=== PATIENT | female | born 2000 | race Caucasian/White ===

== ENCOUNTER 2020-01-13 09:47 | Inpatient (IN) | payer BC ==
[2020-01-13 10:17] LABS: Specific Gravity <= 1.005 (1.005-1.030)
[2020-01-13 10:45] VITALS: BMI 23.0
[2020-01-13 10:54] LABS: Absolute Lymphocytes (CBC) 1.2 K/uL (0.7-4.9); Basophils % 0.3 % (0-1.3); Hematocrit 37.9 % (36.0-45.0); Lymphocytes % 12.7 % (15.3-44.8); RBC Red Blood Cell Count 4.63 M/uL (3.86-4.86)
[2020-01-13 10:59] LABS: Urine Appearance CLEAR; Urine Bilirubin NEGATIVE (NEG); Urine Blood NEGATIVE (NEG); Urine Color YELLOW; Urine Glucose NEGATIVE (NEG); Urine Protein NEGATIVE (NEG); Urine Specific Gravity <=1.005 (1.005-1.030); Urine Urobilinogen 0.2 mg/dL (0.2-1.0); Urine pH 6.5 (5.0-7.0)
[2020-01-13] MEDS ORDERED: POLYETHYL GLY 3350 17 GM/DOSE PO PRN (11:00)
[2020-01-13] MEDS ORDERED: DIPHENHYDRAMINE 25 MG TAB/CAP PO PRN (11:00)
[2020-01-13] MEDS ORDERED: LOPERAMIDE HCL 2 MG CAPSULE PO PRN (11:00)
[2020-01-13 11:01] LABS: Protime INR 1.06
[2020-01-13 11:02] LABS: Urine Microscopic Reflex NO UMIC
--- OUTSIDE RECORDS SUMMARY | 2020-01-13 11:18 | XMS REPORT | Continuity of Care Document ---
:2000 Author Organization [facility] t Address [facility] access hospital [address] [place] [address] Care Team Providers Name Role Phone Magaña Attending Clinician Unavailable Problems This patient has no known problems. Allergies, Adverse Reactions, Alerts This patient has no known allergies or adverse reactions. Medications This patient has no known medications. Procedures This patient has no known procedures. Results Test Description Test Time Test Comments Results Result Comments Source Hematology 2018-03-30 17:46:00 Test Item Value Reference Range Interpretation Comme nts Hematology (test code = WBCT) 3.1 thou/uL 4.8-10.8 L Hematology (test code = RBCT) 5.34 mill/uL 4.00-5.20 H Hematology (test code = HGBT) 11.9 g/dL 12.0-16.0 L Hematology (test code = HCTT) 38.5 % 36.0-47.0 N Hematology (test code = MCV) 72.1 fL 78.0-98.0 L Hematology (test code = MCH) 22.3 pg 25.0-35.0 L Hematology (test code = MCHC) 30.9 g/dL 32.0-36.0 L Hematology (test code = RDW) 14.6 % 11.5-14.5 H Hematology (test code = PLTT) 268 thou/uL 130-400 N Hematology (test code = MPV) 6.9 fL 7.4-10.4 L Hematology (test code = %NEUT) 53.5 % 31.0-61.0 N Hematology (test code = %LYMPH) 34.2 % 28.0-48.0 N Hematology (test code = %MONO) 11.3 % 0.0-4.0 H Hematology (test code = %EOS) 0.2 % 0.0-10.0 N Hematology (test code = %BASO) 0.8 % 0.0-1.0 N Hematology (test code = NEUT#) 1.6 thou/uL 1.40-6.50 N Hematology (test code = LYMPH#) 1.1 thou/uL 1.20-3.40 L Hematology (test code = MONO#) 0.4 thou/uL 0.11-0.59 N Hematology (test code = EOS#) 0.0 thou/uL 0.0-0.7 N Hematology (test code = BASO#) 0.0 thou/uL 0.0-0.2 N Hematology (test code = AZ) SLIGHT = 6-15 cells (100X) 0-5/hpf Hematology (test code = HYPO) SLIGHT = 6-15 cells (100X) 0-5/hpf Hematology (test code = PCOMMENT) Appears Adequate [id number] 17:06:00 Test Item Value Reference Range Interpretation Comments Chemistry (test 142 mmol/L 136-145 N code = NA-T) Chemistry (test 4.0 mmol/L 3.5-5.1 N code = K-T) Chemistry (test 109 mmol/L 98-107 H code = CL) Chemistry (test 23 mmol/L 22-29 N code = CO2) Chemistry (test 14 mmol/L 10-20 N code = ANGP) Chemistry (test 9 mg/dL 8.4-21.0 N code = BUN) Chemistry (test 0.74 mg/dL 0.6-1.1 N code = CREATT) Chemistry (test Greater than 90 Referenc e Range for code = EGFRMDRD) Estimated G FR: Gre ater than 90 mL/min/ 1.73 m2NOTE:The MDRD equation has no t been validated for use with theeld erly (over 70 years of age), women, patients with serious comorbi d condition or pe rsons with extremes o fbody size, muscle ma ss, or nutritional status. Chemistry (test 94 mg/dL 70-105 N code = GLU-T) Chemistry (test 9.4 mg/dL 7.8-10.44 N code = CA)
[2020-01-13 11:32] LABS: ALT/SGPT 14 U/L (12-78); AST/SGOT 11 U/L (15-37); Alkaline Phosphatase 60 U/L (45-117); BUN Blood Urea Nitrogen 6 mg/dL (7-18); Bicarbonate 24 mmol/L (21-32); Bilirubin Direct < 0.1 mg/dL (0-0.2); Bilirubin Total 0.4 mg/dL (0.2-1.0); Glucose Level 87 mg/dL (74-106); Magnesium 1.9 mg/dL (1.8-2.4); Phosphorus 2.5 mg/dL (2.5-4.9); Potassium 3.5 mmol/L (3.5-5.1); Protein, Total 8.2 g/dL (6.4-8.2); Sodium Level 138 mmol/L (136-145)
[2020-01-13] MEDS: NACHLORIDE 0.45% 1,000 ML IV SCH (11:40)
[2020-01-13] MEDS: VANCOMYCIN 1.25 GM in NA CHLORIDE 0.9% 250 ML IVPB SCH ×2 (11:41→22:02)
[2020-01-13] MEDS: HYDROMORPHONE HCL 1 MG/ML INJ IV PRN ×2 (11:43→21:16)
--- NOTE | 2020-01-13 12:02 | RAD REPORT ---
EXAM DESCRIPTION: RAD - Chest Pa And Lat (2 Views) - 01/13/2020 11:55 am CLINICAL HISTORY: Facial Abscess, preop examination COMPARISON: None TECHNIQUE: Frontal and lateral views of the chest were obtained. FINDINGS: The lungs are normal volume. No dense consolidation or mass. No cavitation. Lung parenchym al opacification over lower lung singleton probably affects of soft tissue. Minimal anterior lung base i nfiltrates are possible if there are matching clinical findings. No history is given to indicate acut e respiratory symptoms. No failure or volume overload. Heart size is normal and central vasculature is within normal limits. No pleural effusion or pneumothorax seen. No acute bony finding noted. N o aortic abnormality. IMPRESSION: Baseline study showing no dense mass or consolidation. Increased lung parenchymal opacification at each base is probably baseline. Patchy pneumonia is unlik keith given the absence of any apparent symptoms.
[2020-01-13] MEDS ORDERED: Ringers Lactate 1,000 ML IV ONE (13:05)
[2020-01-13] MEDS ORDERED: FENTANYL CITR 100 MCG/2 ML ONE (13:52)
[2020-01-13] MEDS ORDERED: LIDOCAINE 2% MPF 5 ML VIAL ONE (13:52)
[2020-01-13] MEDS ORDERED: propofoL 200 MG/20 ML VIAL IV ONE ×2 (13:52→14:18)
[2020-01-13] MEDS ORDERED: MIDAZOLAM HCL 2 MG/2 ML INJ ONE (13:52)
[2020-01-13] MEDS ORDERED: KETOROLAC 30 MG/ML INJ ONE (14:29)
[2020-01-13] MEDS ORDERED: ONDANSETRON 4 MG/2 ML VIAL ONE (14:29)
--- NOTE | 2020-01-13 14:32 | P.OP ---
Preoperative diagnosis: Right Face Abscess Postoperative diagnosis: same Primary procedure: I and D and Debridement Right Face Abscess Anesthesia: MAC Estimated blood loss: min Specimen: Pus C&S Findings: as above Complications: None Transferred to: Recovery Room Condition: Good
[2020-01-13] MEDS ORDERED: CODEINE 30MG/APAP 300MG TAB PO PRN (14:46)
[2020-01-13] MEDS: MORPHINE 4 MG/ML SYR ONE ×2 (14:52→14:57)
[2020-01-13] MEDS ORDERED: CHLORHEXIDINE GLUCO 4% 120 ML TOP SCH (15:00)
[2020-01-13] MEDS: ONDANSETRON 4 MG (ODT) TAB PO PRN (16:09)
--- NOTE | 2020-01-13 17:27 | P.SSS ---
Patient History Date of Service: 01/13/20 Reason for admission: FACIAL ABSCESS. History of Present Illness: CELINA STARTED TO HAVE SUDDEN PAINFUL SWELLING ON R SIDE CHEEK. I SAW HER URGENTLY FIRST TIME. AT THAT TIME THERE WAS ABOUT A CM SIZE INDURATION WITHOUT FLUCTUATION. EVEN ON BACTRIM AFTER 3 DOSES OVERNIGHT SHE SWOLL UP MORE. I ADMITTED HER WITH INTENTION TO DO I AND D AND START IV VANCOMYCIN. DR. ISLAS REMOVED ABOUT 5 ML OF PUS AND HE THOUGHT THE BACTERIA ENTERED THE SKIN THROUGH A SPIDER BITE. I WILL DISCHARGE HER IN AM ON ORAL ABX. Allergies No Known Allergies Allergy (Verified 01/13/20 10:02) Home Medications: Sulfamethoxazole/Trimethoprim [Sulfamethoxazole-Tmp Ds Tablet] 1 tab PO BID 01/13/20 - Past Medical/Surgical History Has patient received pneumonia vaccine in the past: No Diabetic: No -: Anemia - Social History Smoking Status: Never smoker Alcohol use: No CD- Drugs: No Caffeine use: No Place of Residence: Home Review of Systems 10-point ROS is otherwise unremarkable Physical Examination - Vital Signs Temperature: 97.9 F Blood Pressure: 108/54 Pulse: 92 Respirations: 17 Pulse Ox (%): 100 - Physical Exam General: Mild distress, Moderate distress HEENT: Atraumatic, PERRLA, Mucous membr. moist/pink, Other (FACIAL ABSCESS NOW UP TO ABOUT 4 CM IN DIAMETER OF INDURATION AND FLUCTUATION IN THE CENTER. ), EOMI, Sclerae nonicteric Neck: Supple, 2+ carotid pulse no bruit, No LAD, Without JVD or thyroid abnormality Respiratory: Clear to auscultation bilaterally, Normal air movement Cardiovascular: Regular rate/rhythm, Normal S1 S2 Gastrointestinal: Normal bowel sounds, No tenderness Musculoskeletal: No tenderness Integumentary: No rashes Neurological: Normal gait, Normal speech, Normal strength at 5/5 x4 extr, Normal tone, Normal affect Lymphatics: No axilla or inguinal lymphadenopathy - Studies Laboratory Data (last 24 hrs) 01/13/20 10:31: Sodium 138, Potassium 3.5, BUN 6 L, Creatinine 1.00, Glucose 87, Phosphorus 2.5, Magnesium 1.9, Total Bilirubin 0.4, AST 11 L, ALT 14, Alkaline Phosphatase 60 01/13/20 10:31: PT 12.5, INR 1.06, APTT 29.9 01/13/20 10:31: WBC 9.8, Hgb 12.7, Hct 37.9, Plt Count 423 H Microbiology Data (last 24 hrs): 01/13/20 10:48 Nasopharnyx Coronavirus COVID-19 PCR - Final - Diagnosis (Problem(s)) (1) Infection of skin due to methicillin resistant Staphylococcus aureus (MRSA) Current Visit: Yes Status: Acute Plan: I SUSPECT THIS WILL BE MRSA INDUCED ABSCESS. IV VANCOMYCIN STARTED. SHE WILL GO HOME ON BACTRIM DS SHE ALREADY HAS AND WOUND CARE. STABLE. SEEN AT LUNCH TIME TODAY BEFORE SURGERY. - Disposition Disposition: ROUTINE DISCHARGE
--- NOTE | 2020-01-13 18:56 | PREOPCON ---
Date of Consultation: 01/13/2020 Reason For Consultation: Infection on right side of face. History Of Present Illness: Patient is a 19-year-old female, who comes in with approximately 5-day h istory of increasing redness, swelling, pain on the right side of the face between the eye and the ea r. She saw Dr. Gaxiola earlier in the week, started on Bactrim; however, the redness became worse. Sh e was admitted for IV antibiotics and I was consulted for incision and drainage. She is awake and al ert, complaining of pain and swelling. Review of Systems: Otherwise unremarkable. Past Medical History: Negative. Past Surgical History: Ankle surgery. Allergies: NONE. Social History: She denies smoking, drinks socially. Family History: Noncontributory. Physical Examination: Vital Signs: Stable. Afebrile. General: Awake, alert. Head and Neck: Cranial nerves 2 through 12 are grossly within normal limits. No neck masses. No JV D. Throat clear. Neck is supple. On the right side of the face between the ear and the eye, there is approximately a 3 cm area of induration, redness with central fluctuance and minimal drainage with pus present, it is dark plus, probably MRSA. There is some secondary swelling of the periorbital re gion on the right side. Laboratory Data: Reviewed. Assessment: A 19-year-old female with right face abscess and cellulitis. Plan: Admit, n.p.o., IV fluid, IV antibiotic, to the OR for incision and drainage and debridement of right face abscess. Patient understands the risks, benefits, and alternatives and agrees to procedures. /MODL Voice ID: [id number] Report ID: [id number]
--- NOTE | 2020-01-13 19:27 | OP ---
Date of Procedure: 01/13/2020 Surgeon: Naun Peterson MD Preoperative Diagnosis: Right face abscess and cellulitis. Postoperative Diagnosis: Right face abscess and cellulitis. Procedure Performed: Incision and drainage and debridement of right face abscess. Estimated Blood Loss: Minimal. Specimens: Pus. Findings: As above. Anesthesia: MAC. Complications: None. Disposition: Patient tolerated the procedure in stab le condition, taken to the recovery room in goo d general condition. Procedure In Detail: Patient was brought to the OR and placed in supine position. MAC anesthesia be gun. Patient was prepped and draped in usual sterile fashion. Marcaine 0.5% was infiltrated locally. A 15-blade was used to cut out the necrotic center of this abscess, it is approximately 6 mm in belkys meter. There was pus under there under pressure, which was evacuated, loculations were broken up. N ecrotic tissue debrided. Wound irrigated. Bleeding controlled with cautery and then wet-to-dry norm al saline dressing change applied. The patient tolerated the procedure in stable condition, taken to Recovery in good general condition. /MODL Voice ID: [id number] Report ID: [id number]
[2020-01-13] MEDS: MUPIROCIN 2% OINT 22GM TUBE TOP SCH (21:15)
[2020-01-13] MEDS: ACETAMINOPHEN 325 MG TABLET PO PRN (23:57)
[2020-01-14] MEDS: HYDROMORPHONE HCL 1 MG/ML INJ IV PRN ×5 (05:13→22:19)
[2020-01-14 05:24] LABS: Absolute Lymphocytes (CBC) 1.7 K/uL (0.7-4.9); Basophils % 0.4 % (0-1.3); Hematocrit 35.4 % (36.0-45.0); Lymphocytes % 17.6 % (15.3-44.8); MPV 7.9 fL (7.6-11.3); RBC Red Blood Cell Count 4.28 M/uL (3.86-4.86)
[2020-01-14 05:35] LABS: BUN Blood Urea Nitrogen 4 mg/dL (7-18); Bicarbonate 23 mmol/L (21-32); Glucose Level 82 mg/dL (74-106); Magnesium 2.1 mg/dL (1.8-2.4); Sodium Level 139 mmol/L (136-145)
[2020-01-14] MEDS: ONDANSETRON 4 MG (ODT) TAB PO PRN ×2 (07:13→17:35)
[2020-01-14] MEDS ORDERED: PROMETHAZINE INJ 25 MG/ML AMP IV PRN (08:05)
[2020-01-14] MEDS: MUPIROCIN 2% OINT 22GM TUBE TOP SCH ×2 (08:34→19:40)
[2020-01-14] MEDS: VANCOMYCIN 1.25 GM in NA CHLORIDE 0.9% 250 ML IVPB SCH ×2 (10:55→23:20)
[2020-01-14] MEDS: ONDANSETRON 4 MG/2 ML VIAL IV PRN ×2 (14:19→22:21)
[2020-01-14] MEDS: ACETAMINOPHEN 325 MG TABLET PO PRN ×2 (16:16→23:20)
--- NOTE | 2020-01-14 19:28 | PN ---
Subjective: Patient is still in significant amount of pain on right side face, has still IV Dilaudid for pain control. Physical Examination: Vital Signs: Blood pressure is 97/46, pulse 84. HEENT/NECK: No JVD. No carotid bruits. Chest: Clear. Heart: Regular. Abdomen: No guarding, no rigidity Skin: On face examination, patient's right-sided facial edema continues, which is about the same as before. Assessment/planning: Right facial abscess, possibly status post a spider bite. She has necrosis and an infection through the penetration of the skin in the region. Dr. Peterson did debridement , removed about 5-6 mL of fluid or pus from it. Culture has been sent. Continue vancomycin IV, keny jones I suspect will be the right antibiotic for her intravenously as it seemed like a methicillin resist ant Staphylococcus aureus infection from the beginning. JUDDD/MODL Voice ID: [id number] Report ID: [id number]
[2020-01-14] MEDS: NACHLORIDE 0.45% 1,000 ML IV SCH (19:48)
[2020-01-14 20:54] VITALS: O2SAT 100
[2020-01-15] MEDS: ACETAMINOPHEN 325 MG TABLET PO PRN (06:05)
[2020-01-15] MEDS: NACHLORIDE 0.45% 1,000 ML IV SCH (06:05)
[2020-01-15] MEDS: HYDROMORPHONE HCL 1 MG/ML INJ IV PRN ×2 (06:19→08:56)
[2020-01-15] MEDS: ONDANSETRON 4 MG/2 ML VIAL IV PRN (06:20)
[2020-01-15 06:38] LABS: Absolute Lymphocytes (CBC) 1.7 K/uL (0.7-4.9); Basophils % 0.7 % (0-1.3); Lymphocytes % 24.3 % (15.3-44.8); MPV 8.2 fL (7.6-11.3)
[2020-01-15 06:48] LABS: BUN Blood Urea Nitrogen 4 mg/dL (7-18); Bicarbonate 25 mmol/L (21-32); Glucose Level 95 mg/dL (74-106); Potassium 3.6 mmol/L (3.5-5.1); Sodium Level 139 mmol/L (136-145)
[2020-01-15] MEDS ORDERED: NA CHLORIDE 0.9% IVPB SCH ×2 (08:00→11:00)
[2020-01-15] MEDS ORDERED: VANCOMYCIN IVPB SCH ×2 (08:00→11:00)
[2020-01-15] MEDS: MUPIROCIN 2% OINT 22GM TUBE TOP SCH (08:36)
[2020-01-15] MEDS ORDERED: POTASSIUM CL SA 10 MEQ TAB PO ONE (09:00)
[2020-01-15] MEDS ORDERED: TRAMADOL HCL 50 MG TAB PO PRN (09:55)
--- NOTE | 2020-01-15 09:55 | PN ---
Date of Progress Note: 01/15/2020 Subjective: The patient is awake and alert, had some pain. No fever or chills. Her cultures grew o ut MRSA sensitive to Bactrim and doxycycline. Objective: Examination of the wound reveals it to be cleaned. There is minimal purulence coming fro m approximately 12 o'clock position. There is some erythema and induration but no fluctuance up ther e and probably some residual pus. Remainder of the periwound is good and a periorbital edema is impr oving as well. Assessment: Status post incision and drainage and debridement of right face abscess. Recommendations: Continue antibiotics, MRSA cocktail. Patient is cleared from Surgery for discharge within the next 24 hours. Follow with my office in a week from Friday. Dressing instructions given to mother in detail. /MODL Voice ID: [id number] Report ID: [id number]
[2020-01-15] MEDS ORDERED: PROMETHAZINE 25 MG TABLET PO PRN (09:56)
[2020-01-15] MEDS ORDERED: VANCOMYCIN 1.75 GM in NA CHLORIDE 0.9% 500 ML IVPB SCH (11:00)
[2020-01-15 12:15] VITALS: BP 99/49; TEMP 97.1
--- NOTE | 2020-01-15 22:37 | P.PN ---
Subjective Date of Service: 01/14/20 Chief Complaint: FACIAL ABSCESS. CELINA HAD TO STAY ONE MORE DAY SHE WAS IN MODERATE AMOUNT OF PAIN AND NEEDED IV MEDS. SHE WILL ALSO GET IV VANCOMYCIN FOR ONE MORE DAY. Physical Examination - Vital Signs Temperature: 97.1 F Blood Pressure: 99/49 Pulse: 65 Respirations: 16 Pulse Ox (%): 100 - Physical Exam General: Alert, In no apparent distress, Moderate distress HEENT: Atraumatic, PERRLA, Other (FACIAL EDEMA FROM INFCTION SHOULD RESOLVE SOON. ), EOMI Neck: Supple, JVD not distended Respiratory: Clear to auscultation bilaterally, Normal air movement Cardiovascular: Regular rate/rhythm, Normal S1 S2 Gastrointestinal: Normal bowel sounds, No tenderness Musculoskeletal: No tenderness Integumentary: No rashes Neurological: Normal speech, Normal tone, Normal affect Lymphatics: No axilla or inguinal lymphadenopathy - Studies Laboratory Data (last 24 hrs) 01/15/20 05:54: Sodium 139, Potassium 3.6, BUN 4 L, Creatinine 0.76, Glucose 95, Magnesium 2.0 01/15/20 05:54: WBC 6.9 D, Hgb 11.2 L, Hct 34.0 L, Plt Count 384 Microbiology Data (last 24 hrs): 01/13/20 14:25 Wound - Right Cheek Gram Stain - Final 01/13/20 14:25 Wound - Right Cheek Culture & Sensitivity - Final Meth Resistant Staph Aureus Medications List Reviewed: Yes Assessment And Plan - Current Problems (Diagnosis) (1) Infection of skin due to methicillin resistant Staphylococcus aureus (MRSA) Status: Acute Plan: I SUSPECT THIS WILL BE MRSA INDUCED ABSCESS. IV VANCOMYCIN STARTED. SHE WILL GO HOME ON BACTRIM DS SHE ALREADY HAS AND WOUND CARE. STABLE. SEEN AT LUNCH TIME TODAY BEFORE SURGERY. STABLE ABOVE.
--- NOTE | 2020-01-15 22:39 | P.DS ---
Admission Date: 01/15/20 Discharge Date: 01/15/20 Disposition: DC HOME/HOME HEALTH CARE Reason for Admission: FACIAL ABSCESS. - Problems (1) Infection of skin due to methicillin resistant Staphylococcus aureus (MRSA) Status: Acute Brief History of Present Illness: CELINA STARTED TO HAVE SUDDEN PAINFUL SWELLING ON R SIDE CHEEK. I SAW HER URGENTLY FIRST TIME. AT THAT TIME THERE WAS ABOUT A CM SIZE INDURATION WITHOUT FLUCTUATION. EVEN ON BACTRIM AFTER 3 DOSES OVERNIGHT SHE SWOLL UP MORE. I ADMITTED HER WITH INTENTION TO DO I AND D AND START IV VANCOMYCIN. DR. PETERSON REMOVED ABOUT 5 ML OF PUS AND HE THOUGHT THE BACTERIA ENTERED THE SKIN THROUGH A SPIDER BITE. I WILL DISCHARGE HER IN AM ON ORAL ABX. Hospital Course: CELINA IS DOING GREAT. SHE STILL VOMITS AFTER PAIN MEDS. SHE IS DOING GOOD IN [place] WITHOUT NEEDING ANY MEDS FOR PAIN, SHE IS DICHARGED IN STABLE CONDITION. SHE HAS BACTIRM DS SHE WILL CONTINUE AT HOME. Vital Signs/Physical Exam: Temp Pulse Resp BP Pulse Ox 97.1 F 65 16 99/49 L 100 01/15/20 22:37 01/15/20 22:37 01/15/20 22:37 01/15/20 22:37 01/15/20 22:37 Laboratory Data at Discharge: WBC 6.9 K/uL (4.3-10.9) D 01/15/20 05:54 Hgb 11.2 g/dL (12.0-15.0) L 01/15/20 05:54 Hct 34.0 % (36.0-45.0) L 01/15/20 05:54 Plt Count 384 K/uL (152-406) 01/15/20 05:54 PT 12.5 SECONDS (9.5-12.5) 01/13/20 10:31 INR 1.06 01/13/20 10:31 APTT 29.9 SECONDS (24.3-36.9) 01/13/20 10:31 Sodium 139 mmol/L (136-145) 01/15/20 05:54 Potassium 3.6 mmol/L (3.5-5.1) 01/15/20 05:54 BUN 4 mg/dL (7-18) L 01/15/20 05:54 Creatinine 0.76 mg/dL (0.55-1.3) 01/15/20 05:54 Glucose 95 mg/dL (74-106) 01/15/20 05:54 Phosphorus 2.5 mg/dL (2.5-4.9) 01/13/20 10:31 Magnesium 2.0 mg/dL (1.8-2.4) 01/15/20 05:54 Total Bilirubin 0.4 mg/dL (0.2-1.0) 01/13/20 10:31 AST 11 U/L (15-37) L 01/13/20 10:31 ALT 14 U/L (12-78) 01/13/20 10:31 Alkaline Phosphatase 60 U/L (45-117) 01/13/20 10:31 Home Medications: Sulfamethoxazole/Trimethoprim [Sulfamethoxazole-Tmp Ds Tablet] 1 tab PO BID 01/13/20 Promethazine Tab [Phenergan] 25 mg PO Q6HP PRN #30 tab 01/15/20 Tramadol HCl [Ultram] 50 mg PO Q6HP PRN #30 tablet 01/15/20 New Medications: Promethazine Tab [Phenergan] 25 mg PO Q6HP PRN #30 tab PRN Reason: Nausea / Vomiting Tramadol HCl [Ultram] 50 mg PO Q6HP PRN #30 tablet PRN Reason: Pain Scale 5-7 (Moderate) Followup: Brandon Gaxiola MD [Primary Care Provider] - 1-2 Weeks Naun Peterson MD [ACTIVE - CAN ADMIT] - 1 Week
[2020-01-18 10:24] LABS: Vitamin D 1,25-Dihydroxy Total 73 pg/mL (18-72); Vitamin D,1,25-OH2, D2 <8 pg/mL
== END 2020-01-15 14:04 | disposition home or self-care (01) | DRG 571 ==
LOC: INTOOBSV 09:47 → 4TH 09:47 → OBSVTOIN 01-15 09:57
PROVIDERS: ADMIT Internal Medicine; ATTEND Internal Medicine
PROC: 0JB10ZZ Excision of Face Subcutaneous Tissue and Fascia, Open Approach (ICD-10-PCS; principal; 2020-01-13 13:30)
DX: L03.211 Cellulitis of face (principal); L02.01 Cutaneous abscess of face; B95.62 Methicillin resistant Staphylococcus aureus infection as the cause of diseases classified elsewhere; T63.301A Toxic effect of unspecified spider venom, accidental (unintentional), initial encounter
CPT/HCPCS: 36415; 71046; 80048; 80076; 80202; 81003; 81025; 82607; 82652; 83735; 84100; 84443; 84703; 85025; 85610; 85730; 87040; 87070; 87077; 87186; 87205; 93005; G0378; J1170; J2250; J2405; J2550; J2704; J3010; J7030; J7040; J7120; U0002

== ENCOUNTER 2021-01-29 14:59 | Emergency (ER) | payer BC ==
--- OUTSIDE RECORDS SUMMARY | 2021-01-29 15:04 | XMS REPORT | Continuity of Care Document ---
:2000 Author Organization [facility] t Address [address] [place] [id number] Care Team Providers Name Role Phone Magaña [...] thou/uL 0.0-0.2 N Hematology (test code = VA) SLIGHT = 6-15 cells (100X) 0-5/hpf Hematology (test code = HYPO) SLIGHT = 6-15 cells (100X) 0-5/hpf Hematology (test code = PCOMMENT) Appears Adequate [id number] 17:06:00 Test Item Value Reference Range Interpretation [...]
[2021-01-29 17:34] LABS: Urine Blood Negative (Negative); Urine Glucose Negative (Negative); Urine Protein Negative (Negative); Urine Specific Gravity >=1.030 (1.005-1.030)
[2021-01-29] MEDS ORDERED: NA CHLORIDE 0.9% 1,000 ML ONE (17:50)
[2021-01-29] MEDS ORDERED: ONDANSETRON 4 MG/2 ML VIAL ONE (17:50)
[2021-01-29] MEDS ORDERED: KETOROLAC 30 MG/ML INJ ONE (17:50)
[2021-01-29 17:57] LABS: Absolute Lymphocytes (CBC) 2.2 K/uL (0.7-4.9); Basophils % 0.4 % (0-1.3); Hematocrit 38.1 % (36.0-45.0); Lymphocytes % 30.9 % (15.3-44.8); MPV 7.9 fL (7.6-11.3); RBC Red Blood Cell Count 4.46 M/uL (3.86-4.86)
[2021-01-29 18:04] LABS: Urine Specific Gravity/Preg >1.030 (1.005-1.030)
[2021-01-29 18:26] LABS: ALT/SGPT 21 U/L (12-78); AST/SGOT 9 U/L (15-37); Alkaline Phosphatase 61 U/L (45-117); BUN Blood Urea Nitrogen 6 mg/dL (7-18); Bicarbonate 27 mmol/L (21-32); Bilirubin Direct < 0.1 mg/dL (0-0.2); Bilirubin Total 0.5 mg/dL (0.2-1.0); Glucose Level 104 mg/dL (74-106); Lipase 112 U/L (73-393); Potassium 3.7 mmol/L (3.5-5.1); Protein, Total 7.8 g/dL (6.4-8.2); Sodium Level 140 mmol/L (136-145)
--- NOTE | 2021-01-29 19:55 | RAD REPORT ---
EXAM DESCRIPTION: CT - Stone Protocol - 01/29/2021 7:27 pm CLINICAL HISTORY: ABD PAIN COMPARISON: No comparisons TECHNIQUE: Axial [address] imaging of the abdomen and pelvis was performed without IV contrast. No IV contrast was given because of allergy, abnormal renal function, patient refusal or physician re quest. No oral contrast administered. All CT scans are performed using dose optimization technique as appropriate and may include automated exposure control or mA/KV adjustment according to patient size. FINDINGS: No suspicious findings in the lung bases. The liver, spleen and pancreas show no suspicious findings on non-contrast imaging. Gallbladder and b iliary tree are also without suspicious finding. No hydronephrosis or suspicious renal mass. No significant adrenal finding. Isodense renal masses an d pyelonephritis cannot be excluded in the absence of IV contrast. Urinary bladder is fully contracte d. No bladder calculi identifiable. Uterus and ovaries show no suspicious findings. No dilated bowel loops or bowel wall thickening. Moderate stool volume throughout the colon. No suspi cion for appendicitis. No free air, free fluid or inflammatory stranding. No hernia, mass or bulky ly mphadenopathy. No suspicious bony findings. IMPRESSION: Non-contrast enhanced CT abdomen and pelvis imaging show no acute or emergent finding. Full assessment is limited is the absence of IV contrast.
[2021-01-29] MEDS ORDERED: ONDANSETRON 4 MG (ODT) TAB ONE ×2 (20:01→20:03)
--- NOTE | 2021-01-29 20:03 | ER ---
Nurse's Notes [facility] Name: Nandini Ibarra Age: 20 yrs Sex: Female : 2000 Arrival Date: 01/29/2021 Time: 15:06 Bed 23 Private MD: Diagnosis: Lower abdominal pain, unspecified; Nausea and vomiting;Diarrhea, unspecified Presentation: 01/29 15:31 Chief complaint: Patient states: "I am having stomach problems for the past couple of jd3 days and I went to urgent care and they said they needed to run test to rule out things like an ultrasound to rule out appendicitis or gal stones.". Coronavirus screen: At this time, the client does not indicate any symptoms associated with coronavirus-19. Ebola Screen: Patient negative for fever greater than or equal to 101.5 degrees Fahrenheit, and additional compatible Ebola Virus Disease symptoms. Initial Sepsis Screen: Does the patient meet any 2 criteria? No. Patient's initial sepsis screen is negative. Does the patient have a suspected source of infection? No. Patient's initial sepsis screen is negative. Risk Assessment: Do you want to hurt yourself or someone else? Patient reports no desire to harm self or others. Onset of symptoms was January 26, 2021. 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 - Social history:: Smoking status: Patient denies any tobacco usage or history of. Screenin:17 Abuse screen: Denies threats or abuse. Nutritional screening: No deficits noted. vg1 Tuberculosis screening: No symptoms or risk factors identified. Fall Risk No fall in past 12 months (0 pts). No secondary diagnosis (0 pts). IV access (20 points). Ambulatory Aid- None/Bed Rest/Nurse Assist (0 pts). Gait- Normal/Bed Rest/Wheelchair (0 pts) Mental Status- Oriented to own ability (0 pts). Total Colon Fall Scale indicates No Risk (0-24 pts). Assessment: 17:30 General: Appears in no apparent distress. comfortable, Behavior is calm, cooperative. vg1 Pain: Complains of pain in abdomen Pain currently is 6 out of 10 on a pain scale. Pain began 2-3 days ago. Neuro: Level of Consciousness is awake, alert, obeys commands, Oriented to person, place, time, situation. Cardiovascular: Patient's skin is warm and dry. Respiratory: Airway is patent Respiratory effort is even, unlabored. GI: Bowel sounds present X 4 quads. Abdomen is tender to palpation in right lower quadrant Reports diarrhea, nausea, vomiting. : No signs and/or symptoms were reported regarding the genitourinary system. EENT: No signs and/or symptoms were reported regarding the EENT system. Derm: Skin is intact, is healthy with good turgor. Musculoskeletal: Circulation, motion, and sensation intact. 19:44 Reassessment: Patient appears in no apparent distress at this time. No changes from vg1 previously documented assessment. Patient and/or family updated on plan of care and expected duration. Pain level reassessed. Patient is alert, oriented x 3, equal unlabored respirations, skin warm/dry/pink. Vital Signs: 15:34 BP 127 / 78; Pulse 58; Resp 16 S; Temp 98.0(TE); Pulse Ox 100% on R/A; Weight 63.5 kg jd3 (R); Height 5 ft. 7 in. (170.18 cm) (R); Pain 6/10; 19:44 BP 115 / 73; Pulse 60; Resp 16; Pulse Ox 100% on R/A; vg1 20:21 BP 120 / 74; Pulse 66; Resp 14; Pulse Ox 100% ; vg1 15:34 Body Mass Index 21.93 (63.50 kg, 170.18 cm) jd3 ED Course: 15:06 Patient arrived in ED. mr 15:33 Triage completed. jd3 15:35 Arm band placed on. jd3 16:38 Louise [facility]C [facility] kb 16:38 Brandt Flood MD is Attending Physician. kb 17:25 Nereida Maldonado, DHARA is Primary Nurse. vg1 17:43 Initial lab(s) drawn, by me, sent to lab. Inserted saline lock: 22 gauge in left vg1 antecubital area, using aseptic technique. Blood collected. 17:52 IV d/c due to infiltration. vg1 18:00 Inserted saline lock: 22 gauge in right antecubital area, using aseptic technique. vg1 18:13 IV d/c due to infiltration. vg1 18:18 Patient has correct armband on for positive identification. Bed in low position. Call vg1 light in reach. Side rails up X 1. Adult w/ patient. 18:55 Radiology exam delayed due to IV insertion attempt and/or patient not having vm2 appropriate IV at this time. 19:26 CT Stone Protocol In Process Unspecified. EDMS 20:21 No provider procedures requiring assistance completed. vg1 Administered Medications: 19:39 Discontinued: NS 0.9% 1000 ml IV at 1000 ml once vg1 18:00 Drug: NS 0.9% 1000 ml Route: IV; Rate: 1000 ml; Site: right antecubital; vg1 20:24 Follow up: IV Status: IV infiltrated vg1 18:01 Drug: Zofran (Ondansetron) 4 mg Route: IVP; Site: right antecubital; vg1 19:39 Follow up: Response: No adverse reaction vg1 18:03 Drug: TORadol - (ketorolac) 15 mg Route: IVP; Site: right antecubital; vg1 19:39 Follow up: Response: Pain is unchanged, physician notified vg1 19:44 Drug: Zofran (Ondansetron) 4 mg Route: PO; vg1 20:23 Follow up: Response: No adverse reaction; Nausea is decreased vg1 Outcome: 20:03 Discharge ordered by . trino 20:21 Discharged to home ambulatory, with family. vg1 20:21 Condition: stable 20:21 Discharge instructions given to patient, Instructed on discharge instructions, follow up and referral plans. medication usage, Demonstrated understanding of instructions, follow-up care, medications, Prescriptions given X 2. 20:24 Patient left the ED. vg1 Signatures: Dispatcher [employer] EDMS Louise Juan FNP-C FNP-Ckb Rivera, Mary Nereida Waters Woody Monzon RN RN Nereida Vargas RN RN vg1 Corrections: (The following items were deleted from the chart) 18:14 17:52 due to infiltration vg1 vg1
--- NOTE | 2021-01-29 20:03 | EDPHYS ---
Physician Documentation [facility] Name: Nandini Ibarra Age: 20 yrs Sex: Female : 2000 Arrival Date: 01/29/2021 Time: 15:06 Bed 23 Private MD: ED Physician Brandt Flood HPI: 01/29 19:33 This 20 yrs old Female presents to ER via Ambulatory with complaints of kb Abdominal Pain. 19:33 The patient presents with abdominal pain right lower quadrant. Onset: The kb symptoms/episode began/occurred 4 day(s) ago. The symptoms do not radiate. Associated signs and symptoms: Pertinent positives: nausea, vomiting, and diarrhea, Pertinent negatives: fever. The symptoms are described as intermittent. Modifying factors: The symptoms are alleviated by nothing, the symptoms are aggravated by nothing. Severity of pain: At its worst the pain was moderate in the emergency department the pain is unchanged. The patient has not experienced similar symptoms in the past. The patient has not recently seen a physician. Pt reports intermittent RLQ pain with nausea, vomiting and diarrhea. 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 No pain at this time.. 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 - Social history:: Smoking status: Patient denies any tobacco usage or history of. ROS: 19:38 Constitutional: Negative for fever, chills, and weight loss. kb 19:38 Abdomen/GI: Positive for abdominal pain, nausea, vomiting, and diarrhea, Negative for constipation. 19:38 All other systems are negative. Exam: 19:38 Constitutional: This is a well developed, well nourished patient who is awake, alert, kb and in no acute distress. Head/Face: Normocephalic, atraumatic. ENT: Moist Mucous membranes Cardiovascular: Regular rate and rhythm with a normal S1 and S2. No gallops, murmurs, or rubs. No pulse deficits. Respiratory: Respirations even and unlabored. No increased work of breathing, no retractions or nasal flaring. Back: No spinal tenderness. No costovertebral tenderness. Full range of motion. Skin: Warm, dry with normal turgor. Normal color. MS/ Extremity: Pulses equal, no cyanosis. Neurovascular intact. Full, normal range of motion. Neuro: Awake and alert, GCS 15, oriented to person, place, time, and situation. Moves all extremities. Normal gait. Psych: Awake, alert, with orientation to person, place and time. Behavior, mood, and affect are within normal limits. 19:38 Abdomen/GI: Inspection: abdomen appears normal, Bowel sounds: normal, in all quadrants, Palpation: soft, in all quadrants, mild abdominal tenderness, in the right lower quadrant. Vital Signs: 15:34 BP 127 / 78; Pulse 58; Resp 16 S; Temp 98.0(TE); Pulse Ox 100% on R/A; Weight 63.5 kg jd3 (R); Height 5 ft. 7 in. (170.18 cm) (R); Pain 6/10; 19:44 BP 115 / 73; Pulse 60; Resp 16; Pulse Ox 100% on R/A; vg1 20:21 BP 120 / 74; Pulse 66; Resp 14; Pulse Ox 100% ; vg1 15:34 Body Mass Index 21.93 (63.50 kg, 170.18 cm) jd3 MDM: 17:01 Patient medically screened. 19:39 Data reviewed: vital signs, nurses notes. Data interpreted: Pulse oximetry: on room air kb is 100 %. Interpretation: normal. ED course: Pt does not want to be stuck again so asks to go home to rest. States she will return if symptoms get worse. Discussed doing CT without contrast and pt in agreement. 20:02 Counseling: I had a detailed discussion with the patient and/or guardian regarding: the kb historical points, exam findings, and any diagnostic results supporting the discharge/admit diagnosis, lab results, radiology results, the need for outpatient follow up, a family practitioner, to return to the emergency department if symptoms worsen or persist or if there are any questions or concerns that arise at home. ED course: Pt still painfree. No vomiting since arrival. No suspicious finding on CT, labs wnl. Diagnostics discussed with pt. In agreement with outpatient follow up. 01/29 17:13 Order name: Basic Metabolic Panel; Complete Time: 18:50 kb 01/29 17:13 Order name: CBC with Diff; Complete Time: 18:14 kb 01/29 17:13 Order name: Hepatic Function; Complete Time: 18:50 kb 01/29 17:13 Order name: Lipase; Complete Time: 18:50 kb 01/29 17:13 Order name: Test, Serum; Complete Time: 18:50 kb 01/29 17:34 Order name: Urine Dipstick-Ancillary; Complete Time: 17:39 EDMS 01/29 17:43 Order name: Urine --Ancillary (enter results); Complete Time: 18:11 bd 01/29 19:16 Order name: CT Stone Protocol; Complete Time: 19:58 kb 01/29 17:13 Order name: IV Saline Lock; Complete Time: 18:13 kb 01/29 17:13 Order name: Labs collected and sent; Complete Time: 17:51 kb 01/29 17:13 Order name: Urine Dipstick-Ancillary (obtain specimen); Complete Time: 17:33 kb Administered Medications: 19:39 Discontinued: NS 0.9% 1000 ml IV at 1000 ml once vg1 18:00 Drug: NS 0.9% 1000 ml Route: IV; Rate: 1000 ml; Site: right antecubital; vg1 20:24 Follow up: IV Status: IV infiltrated vg1 18:01 Drug: Zofran (Ondansetron) 4 mg Route: IVP; Site: right antecubital; vg1 19:39 Follow up: Response: No adverse reaction vg1 18:03 Drug: TORadol - (ketorolac) 15 mg Route: IVP; Site: right antecubital; vg1 19:39 Follow up: Response: Pain is unchanged, physician notified vg1 19:44 Drug: Zofran (Ondansetron) 4 mg Route: PO; vg1 20:23 Follow up: Response: No adverse reaction; Nausea is decreased vg1 Disposition: 01/29/21 20:03 Discharged to Home. Impression: Lower abdominal pain, unspecified, Nausea and vomiting, Diarrhea, unspecified. - Condition is Stable. - Discharge Instructions: Food Choices to Help Relieve Diarrhea, Adult, Viral Gastroenteritis, Adult, [id number], Abdominal Pain, Adult, [id number]. - Prescriptions for Bentyl 20 mg Oral Tablet - take 1 tablet by ORAL route every 6 hours As needed; 20 tablet. Zofran 4 mg Oral Tablet - take 1 tablet by ORAL route every 6 hours As needed; 20 tablet. - Medication Reconciliation Form, Thank You Letter, Antibiotic Education, Prescription Opioid Use form. - Follow up: Private Physician; When: 2 - 3 days; Reason: Recheck today's complaints, Continuance of care, Re-evaluation by your physician. Follow up: Emergency Department; When: As needed; Reason: Worsening of condition. Addendum: 01/30/2021 09:53 Co-signature as Attending Physician, Brandt Flood MD. r n Signatures: Dispatcher [employer] EDCO Louise Juan, BOX LINER-C BOX LINER-Ckb Brandt Flood MD MD rn Davies, Woody, RN RN jd3 Nereida Maldonado RN RN vg1 Corrections: (The following items were deleted from the chart) 01/29 19:16 17:13 Abdomen Pelvis W [id number] ordered. [facility] EDMS 19:22 19:16 Stone Protocol ordered. [facility] EDMS 20:24 20:03 01/29/2021 20:03 Discharged to Home. Impression: Lower abdominal pain, vg1 unspecified; Nausea and vomiting; Diarrhea, unspecified. Condition is Stable. Forms are Medication Reconciliation Form, Thank You Letter, Antibiotic Education, Prescription Opioid Use. Follow up: Private Physician; When: 2 - 3 days; Reason: Recheck today's complaints, Continuance of care, Re-evaluation by your physician. Follow up: Emergency Department; When: As needed; Reason: Worsening of condition. kb
[2021-01-29 20:33] VITALS: TEMP 98; O2SAT 100
[2021-01-29 20:35] VITALS: BP 120/74
== END 2021-01-29 20:24 | disposition home or self-care (01) ==
LOC: ER 14:59
DX: R10.31 Right lower quadrant pain (principal); R11.2 Nausea with vomiting, unspecified; R19.7 Diarrhea, unspecified
CPT/HCPCS: 85025; 80048; 36415; 84703; 81025; 80076; 81003; 83690; 76377; 74176; J7030; J2405; 96361; 96374; 96375; 99284